=== PATIENT | female | born 1955 | race Caucasian/White ===

== ENCOUNTER 2018-04-02 20:07 | Emergency (ER) | payer OTHER ==
[2018-04-02] MEDS: CLINDAMYCIN 150 MG CAP PO (21:45)
== END 2018-04-02 21:51 | disposition home or self-care (01) ==
LOC: M ED 20:07
DX: L03.312 Cellulitis of back [any part except buttock and flank] (principal); F98.8 Other specified behavioral and emotional disorders with onset usually occurring in childhood and adolescence; Z79.899 Other long term (current) drug therapy
CPT/HCPCS: 99282